=== PATIENT | male | born 1980 | race Caucasian/White ===

== ENCOUNTER 2020-09-28 15:05 | Inpatient (IN) | payer MEDICARE, OTHER ==
[~2020-09-28] VITALS: Ht 200.7 cm; Wt 87.7 kg
[2020-09-28 19:48] LABS: HEMOGLOBIN 16.2 gm/dl (14.0-17.5); RED BLOOD COUNT 5.45 M/UL (4.20-5.50); WHITE BLOOD COUNT 4.2 K/UL (4.5-11.0)
[2020-09-28 20:21] LABS: BUN/CREATININE RATIO 24 (0-10)
[2020-09-28] MEDS ORDERED: COREG6.25 MG PO (21:17)
[2020-09-29 01:48] LABS: HEMOGLOBIN 14.7 gm/dl (14.0-17.5); RED BLOOD COUNT 5.02 M/UL (4.20-5.50); WHITE BLOOD COUNT 3.9 K/UL (4.5-11.0)
[2020-09-29 02:09] LABS: BUN/CREATININE RATIO 26 (0-10)
[2020-09-29] MEDS ORDERED: DOXYCYCLINE HY100 MG PO (12:05)
[2020-09-29] MEDS ORDERED: LOPRESSOR 25 MG25 MG PO (12:05)
[2020-09-29] MEDS ORDERED: ASPIRIN EC81 MG PO (12:05)
[2020-09-29] MEDS ORDERED: LIPITOR40 MG PO (12:13)
== END 2020-09-29 14:18 | disposition home or self-care (01) | DRG 177 ==
LOC: MED SURG 4 18:03
PROVIDERS: ADMIT Internal Medicine
PROC: XW033E5 Introduction of Remdesivir Anti-infective into Peripheral Vein, Percutaneous Approach, New Technology Group 5 (ICD-10-PCS; principal; 2020-09-28)
DX: U07.1 COVID-19 (principal); J12.89 Other viral pneumonia; J96.01 Acute respiratory failure with hypoxia; R53.2 Functional quadriplegia; G11.11 Friedreich ataxia; I48.91 Unspecified atrial fibrillation; I10 Essential (primary) hypertension; E78.5 Hyperlipidemia, unspecified; Z74.01 Bed confinement status; Z72.0 Tobacco use; Z98.890 Other specified postprocedural states
CPT/HCPCS: 36415; 71045; 80053; 82550; 82553; 82728; 83605; 83735; 83880; 84443; 84466; 84484; 85025; 85379; 85610; 85730; 86140; 93005; J0696; J1644; J7030